=== PATIENT | female | born 1945 | race Caucasian/White ===

== ENCOUNTER → 2016-08-04 | Outpatient (CLI) | payer OTHER | LOC: KOH-I 11:00 | DX: M54.2 Cervicalgia (principal); M19.90 Unspecified osteoarthritis, unspecified site; R51 Headache; E78.5 Hyperlipidemia, unspecified; M81.0 Age-related osteoporosis without current pathological fracture; Z78.0 Asymptomatic menopausal state; M51.36 Other intervertebral disc degeneration, lumbar region | CPT/HCPCS: 72141 ==